=== PATIENT | female | born 1990 | race Caucasian/White ===

== ENCOUNTER 2022-08-12 17:13 | Emergency (ER) | payer OTHER ==
[~2022-08-12] VITALS: Ht 167.6 cm; Wt 86.2 kg
[2022-08-12 17:35] VITALS: BP 99/63
[2022-08-12] MEDS ORDERED: NAPR-54 PO (18:39)
[2022-08-12] MEDS ORDERED: AMOX1TAB8 PO (18:39)
--- NOTE | 2022-08-12 18:43 | NUR ---
PT D/C BY DR PAYNE. RX OF AMOX-CLAV AND NAPROXEN SENT TO [facility]
== END 2022-08-12 18:43 | disposition home or self-care (01) ==
LOC: MED 17:13
DX: S23.9XXA Sprain of unspecified parts of thorax, initial encounter (principal); J02.9 Acute pharyngitis, unspecified; Z79.899 Other long term (current) drug therapy; X58.XXXA Exposure to other specified factors, initial encounter; Y93.89 Activity, other specified; Y92.89 Other specified places as the place of occurrence of the external cause; Y99.8 Other external cause status
CPT/HCPCS: 99283